=== PATIENT | female | born 1995 | race Caucasian/White ===

== ENCOUNTER 2018-09-17 02:42 | Emergency (ER) | payer BC ==
[2018-09-17] MEDS ORDERED: LIDOCAINE 0.5%/EPINEPHRINE INJ 50 ML VIAL ONE (02:55)
[2018-09-17] MEDS ORDERED: DIPH/PERTUSS(ACELL)/TETANUS VAC/PF 0.5 ML SYR (>=10YO) IM ONE (03:03)
--- NOTE | 2018-09-17 03:35 | RADIOLOGY REPORT (SQ) ---
CLINICAL HISTORY: trauma COMPARISON: None. TECHNIQUE: CT HEAD WITHOUT IV CONTRAST on 09/17/2018 3:03 AM CDT This exam was performed according to our departmental dose-optimization program, which includes automated exposure control, adjustment of the mA and/or kV according to patient size and/or use of iterative reconstruction technique. FINDINGS: There is no acute hemorrhage, mass effect or midline shift. Grimaldo-white differentiation is preserved. There is no hydrocephalus. There is no significant volume loss for age. The calvarium is intact. Orbits and globes are unremarkable. The paranasal sinuses are clear. Mastoid air cells are clear. IMPRESSION: No acute intracranial findings.
[2018-09-17] MEDS ORDERED: ONDANSETRON ODT 4 MG TAB (6 TAB/ER DISP) PO PRN (03:46)
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
[2018-09-17 04:54] VITALS: BP 117/81
== END 2018-09-17 04:53 | disposition home or self-care (01) ==
LOC: ER 02:42
PROC: 0HQ0XZZ Repair Scalp Skin, External Approach (ICD-10-PCS; principal; 2018-09-17)
DX: S01.01XA Laceration without foreign body of scalp, initial encounter (principal); S09.90XA Unspecified injury of head, initial encounter; F10.10 Alcohol abuse, uncomplicated; Y08.89XA Assault by other specified means, initial encounter
CPT/HCPCS: 99284; 90471; 70450; 90715; 12002; J3490

== ENCOUNTER 2018-09-23 16:20 | Emergency (ER) | payer BC ==
[2018-09-23 16:33] VITALS: BP 151/65
--- NOTE | 2018-09-23 16:40 | ER Document Report ---
HPI - HPI Time Seen by Provider: 09/23/18 16:36 Pain Level: 0 Notes: Patient is an otherwise healthy 23-year-old female who presents with request for staple removal. Patient has 6 lencho to the anterior right side of her head. They replaced on 09/17/18. - REPRODUCTIVE Reproductive: DENIES: : Past Medical History - General Information source: Patient - Social History Smoking Status: Never Smoker Frequency of alcohol use: None Drug Abuse: None Family History: Reviewed & Not Pertinent, Malignancy Pulmonary Medical History: Denies: Hx Asthma Renal/ Medical History: Denies: Hx Peritoneal Dialysis Psychiatric Medical History: Reports: Hx Depression Surgical Hx: Negative - Immunizations Immunizations up to date: Yes Hx Diphtheria, Pertussis, Tetanus Vaccination: Yes Vertical Provider Document - CONSTITUTIONAL Notes: PHYSICAL EXAMINATION: GENERAL: Well-appearing, well-nourished and in no acute distress. HEAD: Atraumatic, normocephalic. EYES: Pupils equal round extraocular movements intact, conjunctiva are normal. ENT: Nares patent NECK: Normal range of motion LUNGS: No respiratory distress Musculoskeletal: Normal range of motion NEUROLOGICAL: Normal speech, normal gait. PSYCH: Normal mood, normal affect. SKIN: Warm, Dry, normal turgor, no rashes or lesions noted. 6 lencho noted to right side of patient's head, wound is healed, no erythema, swelling or exudates. - INFECTION CONTROL TRAVEL OUTSIDE OF THE [place] IN LAST 30 DAYS: No Course - Re-evaluation Re-evalutation: Lencho removed without incident. Patient tolerated well. Patient discharged home in stable condition. - Vital Signs Vital signs: Temp Pulse Resp BP Pulse Ox 98.7 F 65 14 151/65 H 100 09/23/18 16:32 09/23/18 16:32 09/23/18 16:32 09/23/18 16:32 09/23/18 16:32 Discharge - Discharge Clinical Impression: Removal of staple Condition: Stable Disposition: HOME, SELF-CARE Additional Instructions: Staple Removal Your lencho have been removed. Please follow the care instructions the doctor/nurse practitioner has outlined for you. Unless instructed otherwise, you may get the wound wet and you do not need to continue bandaging it. You may begin to return to regular activities, but remember that it takes the inner tissues up to six weeks to fully heal. Therefore, do not subject the wound to significant forces or stress as it may re-open. See the doctor immediately if any signs of infection occur such as swelling, redness, drainage of pus, increasing tenderness, red streaks, tender lumps in the armpit or groin above the laceration, or fever. Unless you are instructed otherwise, you should not need to be seen again for any further evaluation of your wound. Referrals: MARCIN ALVARADO MD [Primary Care Provider] - Follow up as needed
== END 2018-09-23 16:56 | disposition home or self-care (01) ==
LOC: ER 16:20
DX: S01.01XD Laceration without foreign body of scalp, subsequent encounter (principal); X58.XXXD Exposure to other specified factors, subsequent encounter

== ENCOUNTER 2019-08-21 17:41 | Emergency (ER) | payer BC ==
[2019-08-21] MEDS ORDERED: NORMAL SALINE 1000 ML 1,000 ML IV ONE (19:59)
[2019-08-21] MEDS ORDERED: ONDANSETRON HCL INJ/PF 4 MG/2 ML SDV IV ONE (19:59)
--- NOTE | 2019-08-21 20:02 | ER Document Report ---
ED Medical Screen (RME) - General Chief Complaint: Vomiting Stated Complaint: VOMITING Time Seen by Provider: 08/21/19 19:55 Primary Care Provider: MARCIN ALVARADO MD [Primary Care Provider] - Follow up as needed Notes: Patient is a 23-year-old female who presents emergency department with a chief complaint of vomiting. Patient reports vomiting about 5 times this morning and one episode of diarrhea. Denies sick contacts. Has been able to tolerate sips of fluid but feels dehydrated. Patient reports is been ongoing for about 12 hours. Reports epigastric pain. TRAVEL OUTSIDE OF THE [place] IN LAST 30 DAYS: No - Related Data Allergies/Adverse Reactions: No Known Allergies Allergy (Verified 08/21/19 19:51) Past Medical History - Social History Frequency of alcohol use: Occasional Pulmonary Medical History: Denies: Hx Asthma Renal/ Medical History: Denies: Hx Peritoneal Dialysis Psychiatric Medical History: Reports: Hx Depression - Immunizations Immunizations up to date: Yes Hx Diphtheria, Pertussis, Tetanus Vaccination: Yes Physical Exam - Vital signs Vitals: Temp Pulse Resp BP Pulse Ox 98.2 F 69 18 125/74 98 08/21/19 18:37 08/21/19 18:37 08/21/19 18:37 08/21/19 18:37 08/21/19 18:37 Course - Re-evaluation Re-evalutation: 08/21/19 20:01 Patient is not tachycardic, hypotensive in triage. Will obtain basic labs as well as IV fluids. 08/21/19 20:02 I have greeted and performed a rapid initial assessment of this patient. A comprehensive ED assessment and evaluation of the patient, analysis of test results and completion of the medical decision making process will be conducted by additional ED providers. - Vital Signs Vital signs: Temp Pulse Resp BP Pulse Ox 98.2 F 69 18 125/74 98 08/21/19 18:37 08/21/19 18:37 08/21/19 18:37 08/21/19 18:37 08/21/19 18:37 Doctor's Discharge - Discharge Referrals: MARCIN ALVARADO MD [Primary Care Provider] - Follow up as needed
[2019-08-21 20:34] LABS: APPEARANCE,URINE SLIGHTLY-CLOUDY; BILIRUBIN,URINE NEGATIVE (NEGATIVE); COLOR,URINE YELLOW; GLUCOSE, URINE NEGATIVE (NEGATIVE); HEMATOCRIT 43.1 % (36.0-47.0); HEMOGLOBIN 14.6 g/dL (12.0-15.5); KETONES,URINE NEGATIVE (NEGATIVE); LEUKOCYTE ESTERASE,URINE NEGATIVE (NEGATIVE); MEAN CORPUSCULAR HEMOGLOBIN 31.9 pg (27.0-33.4); MEAN CORPUSCULAR VOLUME 94 fl (80-97); NITRITE,URINE NEGATIVE (NEGATIVE); PLATELET COUNT 229 10^3/uL (150-450); PROTEIN,URINE NEGATIVE (NEGATIVE); RED CELL DISTRIBUTION WIDTH 12.1 % (11.5-14.0); URINE SPECIFIC GRAVITY 1.021; UROBILINOGEN,URINE NEGATIVE mg/dL (<2.0); WHITE BLOOD COUNT 11.5 10^3/uL (4.0-10.5)
[2019-08-21 20:53] LABS: ABSOLUTE LYMPHOCYTES# (MANUAL) 0.8 10^3/uL (0.5-4.7); ABSOLUTE MONOCYTES # (MANUAL) 0.1 10^3/uL (0.1-1.4); BASOPHILS % (MANUAL) 0 % (0-2); EOSINOPHILS % (MANUAL) 2 % (0-6); LYMPHOCYTES % (MANUAL) 6 % (13-45); MONOCYTES % (MANUAL) 1 % (3-13); PLATELET COMMENT ADEQUATE; RBC MORPHOLOGY COMMENT NORMO-CYTIC/CHROMIC; SEGMENTED NEUTROPHILS % (MAN) 90 % (42-78); TOTAL CELLS COUNTED 100
[2019-08-21 20:55] LABS: ALBUMIN 4.4 g/dL (3.5-5.0); ALKALINE PHOSPHATASE 51 U/L (38-126); ANION GAP 11 (5-19); ASPARTATE AMINO TRANSFERASE 23 U/L (14-36); BILIRUBIN,DIRECT 0.1 mg/dL (0.0-0.4); BILIRUBIN,TOTAL 1.1 mg/dL (0.2-1.3); BLOOD UREA NITROGEN 13 mg/dL (7-20); CALCIUM 9.6 mg/dL (8.4-10.2); CARBON DIOXIDE 24 mmol/L (22-30); CHLORIDE 103 mmol/L (98-107); GLUCOSE 77 mg/dL (75-110); POTASSIUM 4.2 mmol/L (3.6-5.0); TOTAL PROTEIN 7.9 g/dL (6.3-8.2)
[2019-08-21] MEDS ORDERED: RINGERS SOLUTION,LACTATED 1,000 ML IV ONE (22:19)
[2019-08-21 23:11] VITALS: BP 114/68
--- NOTE | 2019-08-21 23:15 | ER Document Report ---
Entered by DIAMANTE MACHADO SCRIBE 08/21/19 [id number] Acting as scribe for:ABBI FLANNERY MD ED General - General Chief Complaint: Vomiting Stated Complaint: VOMITING Time Seen by Provider: 08/21/19 19:55 Primary Care Provider: MARCIN ALVARADO MD [COMMUNITY BASED STAFF] - Follow up as needed Information source: Patient Notes: 23-year-old female presents to the emergency department complaining of vomiting and diarrhea that began today. Patient reports that she ate [place] last night and went to sleep feeling fine. Patient reports that she woke up this morning, she had diarrhea and "threw up the food she had last night". Patient stated that she has vomited bile 5 times after the first time this morning. Patient reports that she feels fine now, stating she is "just tired". Patient reports chills and diaphoresis. Patient denies fevers. TRAVEL OUTSIDE OF THE [place] IN LAST 30 DAYS: No - Related Data Allergies/Adverse Reactions: No Known Allergies Allergy (Verified 08/21/19 19:51) Past Medical History - General Information source: Patient - Social History Smoking Status: Current Every Day Smoker Cigarette use (# per day): Yes Chew tobacco use (# tins/day): No Frequency of alcohol use: Occasional Lives with: Family Family History: Reviewed & Not Pertinent, Malignancy Patient has suicidal ideation: No Patient has homicidal ideation: No Psychiatric Medical History: Reports: Hx Depression Surgical Hx: Negative - Immunizations Immunizations up to date: Yes Hx Diphtheria, Pertussis, Tetanus Vaccination: Yes Review of Systems - Review of Systems Constitutional: See HPI, Chills, Diaphoresis. denies: Fever EENT: No symptoms reported Cardiovascular: No symptoms reported Respiratory: No symptoms reported Gastrointestinal: No symptoms reported Genitourinary: denies: Dysuria Female Genitourinary: No symptoms reported Musculoskeletal: No symptoms reported Skin: No symptoms reported Hematologic/Lymphatic: No symptoms reported Neurological/Psychological: No symptoms reported -: Yes All other systems reviewed and negative Physical Exam - Vital signs Vitals: Temp Pulse Resp BP Pulse Ox 98.2 F 69 18 125/74 98 08/21/19 18:37 08/21/19 18:37 08/21/19 18:37 08/21/19 18:37 08/21/19 18:37 - Notes Notes: Physical Exam: General: Alert, appears well. HEENT: Normocephalic. Atraumatic. PERRL. Extraocular movements intact. Oropharynx clear. Neck: Supple. Non-tender. Respiratory: No respiratory distress. Clear and equal breath sounds bilaterally. Cardiovascular: Regular rate and rhythm. Abdominal: Minimal epigastric tenderness to palpation. No distension. Normal Bowel Sounds. Back: No gross abnormalities. Extremities: Moves all four extremities. Upper extremities: Normal inspection. Normal ROM. Lower extremities: Normal inspection. No edema. Normal ROM. Neurological: Normal cognition. AAOx4. Normal speech. Psychological: Normal affect. Normal Mood. Skin: Warm. Dry. Normal color. Course - Re-evaluation Re-evalutation: 08/21/19 23:11 Patient improved after second liter of IV fluids states he feels much better no nausea no longer nauseated or having any vomiting. - Vital Signs Vital signs: Temp Pulse Resp BP Pulse Ox 98.5 F 65 16 114/68 100 08/21/19 23:08 08/21/19 23:08 08/21/19 23:08 08/21/19 23:08 08/21/19 23:08 - Laboratory Result Diagrams: 08/21/19 19:40 08/21/19 19:40 Laboratory results interpreted by me: 08/21/19 08/21/19 19:40 19:40 WBC 11.5 H Seg Neuts % (Manual) 90 H Lymphocytes % (Manual) 6 L Monocytes % (Manual) 1 L Abs Neuts (Manual) 10.4 H Urine Blood SMALL H Discharge - Discharge Clinical Impression: Acute gastroenteritis Condition: Stable Disposition: HOME, SELF-CARE Instructions: Antinausea Medication ([facility]), Gastroenteritis (adult) ([facility]), Vomiting ([facility]) Prescriptions: Ondansetron [Zofran Odt 4 mg Tablet] 1 - 2 tab PO Q4HP PRN #10 tab.rapdis PRN Reason: Famotidine [Pepcid 20 mg Tablet] 20 mg PO DAILY #12 tablet Forms: Return to Work Referrals: MARCIN ALVARADO MD [COMMUNITY BASED STAFF] - Follow up as needed I personally performed the services described in the documentation, reviewed and edited the documentation which was dictated to the scribe in my presence, and it accurately records my words and actions.
== END 2019-08-21 23:33 | disposition home or self-care (01) ==
LOC: ER 17:41
DX: K52.9 Noninfective gastroenteritis and colitis, unspecified (principal); R11.10 Vomiting, unspecified; R61 Generalized hyperhidrosis; F17.210 Nicotine dependence, cigarettes, uncomplicated
CPT/HCPCS: 36415; 83690; 85025; 81025; 80053; 81001; J2405; J7030; J7120; 96361; 96374; 99284